=== PATIENT | male | born 1955 | race Caucasian/White ===

== ENCOUNTER 2018-06-24 10:39 | Emergency (ER) | payer BC ==
[2018-06-24 10:55] VITALS: BP 133/80
--- NOTE | 2018-06-24 11:05 | UC ---
Back Pain HPI - HPI Summary HPI Summary: Patient is 62 year old gentleman who present today with mid back pain for past 4 days.c/o mid back pain that started Monday afternoon. States is not able to bend over to pick something up without pain. He denies any prior back injuries or pain. He reports that prior to the onset of current symptoms he was hanging up bikes and working in his garage and noticed the pain next day that slowly got worse over the next few days Pain is localized to mid back area that gets worse with bending and he took ibuprofen which helped relieve some of symptoms. Sitting for a long duration can make the pain worse Denies any radicular symptoms, numbness , tingling , incontinence, saddle anesthesia , motor or sensory disturbance. Denies any fever, chills, cough chest pain or shortness of breath . Denies any abdominal pain , nausea or vomiting , diarrhea or constipation. - History of Current Complaint Chief Complaint: UCBackPain Stated Complaint: BACK PAIN Time Seen by Provider: 06/24/18 10:50 Hx Obtained From: Patient Pain Intensity: 4 - Allergies/Home Medications Allergies/Adverse Reactions: Allergies Allergy/AdvReac Type Severity Reaction Status Date / Time Sulfa (Sulfonamide Allergy Hives Verified 06/24/18 10:49 Antibiotics) Home Medications: Home Medications Fenofibrate,Micronized [Fenofibrate] 134 mg PO DAILY 06/24/18 [History Confirmed 06/24/18] Ibuprofen TAB* [Advil TAB*] 400 mg PO Q6H PRN 06/24/18 [History Confirmed ] PMH/Surg Hx/FS Hx/Imm Hx Previously Healthy: Yes Endocrine History: Dyslipidemia Other Endocrine History: negative Other Cardiovascular History: negative Other Respiratory History: negative Other GI/ History: negative Other Neurological History: negative Psychological History: Anxiety Other Psychological History: negative Other Cancer History: negative - Surgical History Surgical History: Yes Surgery Procedure, Year, and Place: R index finger 2006 - Social History Alcohol Use: Daily Alcohol Amount: scotch Substance Use Type: None Smoking Status (MU): Never Smoked Tobacco Review of Systems Constitutional: Negative Skin: Negative Eyes: Negative ENT: Negative Respiratory: Negative Cardiovascular: Negative Gastrointestinal: Negative Genitourinary: Negative Motor: Decreased ROM - Painful range of motion of spine Neurovascular: Negative Musculoskeletal: Decreased ROM, Other: - Back pain Neurological: Negative Psychological: Negative Is Patient Immunocompromised?: No All Other Systems Reviewed And Are Negative: Yes Physical Exam - Summary Physical Exam Summary: Physical Exam: Const: Appears well. No signs of apparent distress present. Alert and oriented x 3. Head/Face: Atraumatic, normocephalic on inspection. Eyes: EOMI and PERRLA in both eyes. Conjunctivae clear. No discharge noted ENT: Hearing normal, TM normal appearing bilaterally . Respiratory: Respirations are unlabored. Lungs clear to auscultation bilaterally, no wheezing , rhonchi or rales noted . CVS: Regular rate and Rhythm, S1S2 normal , no murmurs identified. Extremities: Peripheral circulation is grossly normal. Pulses 2+ Abdomen : Soft non tender , nondistended , Bowel sounds present . No guarding , rebound tenderness or rigidity noted. Skin: No lesions or rash located on the upper extremities or on the lower extremities. Neuro: Cranial nerves II to XII intact, motor and sensory intact. DTR Intact bilaterally. Mood is normal. Affect is normal. Musculo: Walks with a normal gait. Thoracic and lumbar Spine: No loss of the normal lumbar lordosis or step-off. No midline or paraspinal tenderness spine noted. There is no tenderness of the costovertebral angle bilaterally. Stability: No obvious instability. Strength: Flexion, extension, left rotation, left lateral bending, right lateral bending and right rotation strength is intact. ROM: Full ROM with pain upon flexion and extension Special Tests: Straight leg raise is negative bilaterally. Slump test negative bilaterally. Neuro: Sensation intact to light touch. Motor and sensory intact. Reflexes: Left DTR's are intact. Right DTR's are intact. Toes downgoing. Coordination normal. Distal pulses intact. Triage Information Reviewed: Yes Vital Signs: Initial Vital Signs Temp 96.9 F 06/24/18 10:51 Pulse 68 06/24/18 10:51 Resp 16 06/24/18 10:51 BP 133/80 06/24/18 10:51 Pulse Ox 98 06/24/18 10:51 Vital Signs Reviewed: Yes Back Pain Course/Dx - Course Course Of Treatment: During the visit today, wediscussed the findings and further plan. His symptoms are most likely secondary to lumbar strain . I discussed the natural history and course of the illness .I will prescribe the medication- meloxicam for pain relief and cyclobenzaprine for spasms to the pharmacy . I discussed the side effects of cyclobenzaprine. Patient expressed understanding . - Differential Dx/Diagnosis Provider Diagnoses: Lumbar strain. Mid back strain Discharge - Sign-Out/Discharge Documenting (check all that apply): Patient Departure All imaging exams completed and their final reports reviewed: No Studies - Discharge Plan Condition: Stable Disposition: HOME Prescriptions: Cyclobenzaprine TAB* [Flexeril 10 MG TAB*] 10 mg PO BID PRN 10 Days #20 tab PRN Reason: Spasms - Back Meloxicam(NF) [Mobic(NF)] 7.5 mg PO BID PRN 10 Days #20 tab PRN Reason: Pain Patient Education Materials: Low Back Strain (ED), Core Strengthening Exercises (GEN), Lower Back Exercises (ED) Referrals: Lilliana Clinton PA [Primary Care Provider] - 1 Week Additional Instructions: Please start taking the medication as prescribed to the pharmacy . Follow up with your primary care doctor in 1 week Return to Urgent care / ER if symptoms get worse. - Billing Disposition and Condition Condition: STABLE Disposition: Home
== END 2018-06-24 11:25 | disposition home or self-care (01) ==
LOC: UCCORT 10:39
DX: S39.012A Strain of muscle, fascia and tendon of lower back, initial encounter (principal); Z88.2 Allergy status to sulfonamides; X58.XXXA Exposure to other specified factors, initial encounter; Y92.9 Unspecified place or not applicable
CPT/HCPCS: 99212; G0463